=== PATIENT | female | born 1960 | race Caucasian/White ===

== ENCOUNTER 2019-07-31 00:47 | Emergency (ER) | payer MEDICARE, MEDICAID ==
[~2019-07-31] VITALS: Ht 162.6 cm; Wt 47.7 kg
[2019-07-31 03:00] VITALS: BP 164/95
== END 2019-07-31 03:02 | disposition home or self-care (01) ==
LOC: ER 00:48
DX: R09.81 Nasal congestion (principal); R11.2 Nausea with vomiting, unspecified; J34.89 Other specified disorders of nose and nasal sinuses; F22 Delusional disorders; I49.8 Other specified cardiac arrhythmias; Z88.8 Allergy status to other drugs, medicaments and biological substances
CPT/HCPCS: 93005; 99283